=== PATIENT | female | born 1980 | race Caucasian/White ===

== ENCOUNTER 2017-02-14 08:22 | Emergency (ER) | payer BC ==
[2017-02-14 08:24] VITALS: BP 133/78; PULSE 86; RESP 16; TEMP 97.9; O2SAT 97
[2017-02-14 08:31] VITALS: BP 140/98; PULSE 90; RESP 14; TEMP 97.7; O2SAT 98
[2017-02-14] MEDS ORDERED: SPIR100T PO (08:34)
--- NOTE | 2017-02-14 08:46 | PD ---
HPI Chief Complaint: Cardiac Complaint Time Seen by Provider: 08:42 Travel History International Travel<30 days: No Contact w/Intl Traveler<30days: No Traveled to known affect area: No History of Present Illness HPI The patient was seen and examined in the presence of the nurse. This patient complains of chest pain. Duration is 3 days. Severity is moderate. Location is right and left upper chest. Pain is readily reproduced with twisting of her torso in either direction or taking a deep breath. No injury. No fever or cough or shortness of breath. She has no medical history whatsoever. No alleviating factors. PFSH Past Medical History Medical History: Denies Significant Hx ?: Not LMP: 02/11/17 Tubal Ligation: Yes Past Surgical History Section: Yes Social History Alcohol Use: No Tobacco Use: No Substance Use: No Allergies-Medications (Allergen,Severity, Reaction): Coded Allergies: No Known Allergies (Unverified , 02/14/17) Reported Meds & Prescriptions Reported Meds & Active Scripts Active Reported Spironolactone 100 Mg Tab 100 Mg PO BID Review of Systems General / Constitutional: No: Fever Eyes: No: Visual changes HENT: No: Headaches Cardiovascular: Positive: Chest Pain or Discomfort Respiratory: No: Shortness of Breath Gastrointestinal: No: Abdominal Pain Genitourinary: No: Dysuria Musculoskeletal: No: Pain Skin: No Rash Neurologic: No: Weakness Psychiatric: No: Depression Endocrine: No: Polydipsia Hematologic/Lymphatic: No: Easy Bruising Physical Exam Narrative GENERAL: Well-nourished, well-developed patient in no apparent distress. SKIN: Focused skin assessment reveals no rash and nodules. Skin is Warm and dry. HEAD: Atraumatic. Normocephalic. EYES: Pupils equal and round. No scleral icterus. No injection or drainage. ENT: No nasal bleeding or discharge. Mucous membranes pink and moist. NECK: Trachea midline. No JVD. CARDIOVASCULAR: Regular rate and rhythm. No murmur appreciated. RESPIRATORY: No accessory muscle use. Clear to auscultation. Breath sounds equal bilaterally. GASTROINTESTINAL: Abdomen soft, non-tender, nondistended. Hepatic and splenic margins not palpable. MUSCULOSKELETAL: No obvious deformities. No clubbing. No cyanosis. No edema. Has readily reproducible chest wall tenderness in the left and right pectoral regions. Also sternal tenderness noted. No bruising or crepitus NEUROLOGICAL: Awake and alert. No obvious cranial nerve deficits. Motor grossly within normal limits. Normal speech. PSYCHIATRIC: Appropriate mood and affect; insight and judgment normal. Data Data Last Documented VS Vital Signs Date Time Temp Pulse Resp B/P Pulse Ox O2 Delivery O2 Flow Rate FiO2 02/14/17 08:31 97.7 90 14 140/98 98 Room Air Orders Electrocardiogram (02/14/17 ) MDM Medical Decision Making Medical Screen Exam Complete: Yes Emergency Medical Condition: Yes Medical Record Reviewed: Yes Differential Diagnosis Costochondritis, ACS, pleurisy Narrative Course I have reviewed the patient's electronic medical record. I reviewed her EKG which is normal Extended cardiac monitoring shows sinus rhythm without ectopy Patient is having clearcut musculoskeletal chest wall pain. She has no cardiac risk factors and normal EKG I don't see indication for emergent studies beyond the EKG at this point She does not need stress testing for this Diagnosis Primary Impression: Musculoskeletal chest pain Additional Instructions: The patient was advised to follow up with their physician and return if they worsen. Med/Other Pt SpecificInfo: Other Disposition: 01 DISCHARGE HOME Condition: Stable Kenji Brown MD Feb 14, 2017 08:46
--- NOTE | 2017-02-14 11:40 | EKG ---
Date Performed: 02/14/2017 Time Performed: 08:44:06 PTAGE: 37 years EKG: Sinus rhythm NORMAL ECG NO PREVIOUS TRACING DOCTOR: Artem Felix Interpretating Date/Time 02/14/2017 11:39:17
== END 2017-02-14 11:43 | disposition home or self-care (01) ==
LOC: NEPC 08:22
DX: R07.89 Other chest pain (principal)
CPT/HCPCS: 93005